=== PATIENT | female | born 1960 | race Caucasian/White ===

== ENCOUNTER 2017-02-22 01:21 | Day surgery (SDC) | payer BC ==
[~2017-02-22] VITALS: Ht 167.6 cm; Wt 95.6 kg
--- NOTE | ~2017-02-22 | HP ---
ADMIT: 02/22/2017 RM/LOC: W.10 [facility] MR#: [id number] [address] [place] [address] History and Physical SEX: F AGE: 56 : 1960 DATE OF SERVICE: HISTORY OF PRESENT ILLNESS: This is a 56-year-old female, who came to the ER last night with complaints of sharp lower abdominal pain. It gradually started at 6 and became more severe through the night. Evaluation in the ER included a CT scan, which demonstrated incarcerated possible strangulated omentum and a lower midline ventral hernia. This was unreducible in the ER. She was otherwise without other complaint today. PAST MEDICAL HISTORY: Hypertension. MEDICATIONS: Current medications are: 1. Metoprolol. 2. Cimzia. 3. Folic acid. 4. Multivitamin. SURGICAL HISTORY: Laparoscopically assisted vaginal hysterectomy. ALLERGIES: NO KNOWN MEDICAL ALLERGIES. FAMILY HISTORY: Noncontributory. SOCIAL HISTORY: She does not smoke, and denies alcohol consumption. REVIEW OF SYSTEMS: Abdominal pain, as reported above. The remainder of the 10-point review of systems is negative for recent change. PHYSICAL EXAMINATION: GENERAL: Will is alert, oriented, and in no acute distress. VITAL SIGNS: Stable at admission. HEENT: Sclerae appear grossly anicteric. Cranial nerves are intact grossly. ADMIT: 02/22/2017 RM/LOC: W.10 [facility] MR#: [id number] [address] [id number] [address] [place] [address] History and Physical SEX: F AGE: 56 : 1960 NECK: Supple. Trachea is midline. LUNGS: Clear bilaterally. HEART: Regular rate and rhythm without murmur. ABDOMEN: Nondistended. There is tender palpable hernia which is incarcerated in the lower midline. EXTREMITIES: Neurovascularly intact x4 with no calf tenderness or swelling. IMPRESSION: Incarcerated ventral hernia. PLAN: I have recommended proceeding with laparoscopic possible open repair possibly with mesh. I discussed the risks of this in detail with Will via an fudge candy maker and she wishes to proceed. Nathan Avendano MD/ tonny JOB #: [id number] CC: Nathan Avendano, Attending Physician Nathan Avendano, Family Physician
--- NOTE | 2017-02-24 04:09 | ER ---
ADMIT: 02/22/2017 RM/LOC: ER [facility] MR#: [id number] [id number] [place], [place] [address] [address] [place] [address] Emergency Room Report SEX: F AGE: 56 : 1960 DATE: 02/22/2017 ADDENDUM: See T-sheet for complete H and P. A 56-year-old female, comes in with about 7-8 hours of lower abdominal pain. The pain has been persistent since onset. It feels like her lower abdomen is in knots. She has not had any nausea or vomiting. Has had normal bowel movements recently, maybe just slight constipation, but nothing that had her concerned. She is not having any urinary symptoms. The patient is otherwise fairly healthy other than a diagnosis of rheumatoid arthritis and hypertension. She states her only previous surgery is a transvaginal hysterectomy. On physical exam, she is moderately obese with tenderness in the area of her suprapubic region, where there is what is roughly a baseball sized firm bulge consistent with what I believe is likely a hernia. The remainder of her abdominal exam is unremarkable. CBC, chemistries, urinalysis were unremarkable. A CT of her abdomen was done, which reveals a large midline ventral hernia with herniated fat with prominent vessels and suggestion of inflammation. The remainder of the bowel is unremarkable other than a moderate size gastric hiatal hernia and slightly complex-appearing cyst in the midpole of the left kidney. HOSPITAL COURSE: The patient did receive IV pain medication in the emergency department and several attempts were made to reduce her hernia and I was unsuccessful in reduction of the hernia. I did contact Dr. Avendano, who is on for Surgery this morning and plan at this time is to have the patient go to short-stay surgery to be evaluated and likely have surgical repair of her ventral hernia. DIAGNOSIS: Ventral midline abdominal hernia. Cristo Perez MD/ tonny JOB #: [id number] CC: Cristo Perez MD, Attending Physician Raymundo Stanton MD, Family Physician
--- NOTE | 2017-03-04 20:44 | OR ---
ADMIT: 02/22/2017 RM/LOC: [facility] MR#: [id number] [address] [address] [address] [place] [address] Operative/Delivery Room Report SEX: F AGE: 56 : 1960 Corrected: 02/26/2017 0638 [facility] SURGERY DATE: 02/22/2017 SURGEON: Nathan Avendano MD PREOPERATIVE DIAGNOSIS: Incarcerated ventral incisional hernia. POSTOPERATIVE DIAGNOSIS: Incarcerated ventral incisional hernia. PROCEDURE: Laparoscopic repair of incarcerated ventral incisional hernia with [address] Mesh. COCOA BEAN CLEANER: Wang Thompson MD whose assistance was necessary for laparoscopic visualization and tissue retraction. ANESTHESIA: General. ESTIMATED BLOOD LOSS: 25 mL. DESCRIPTION OF PROCEDURE: The patient was taken to the operating room and placed supine on the operating room table. General anesthesia was established. The abdomen was prepped and draped in the standard surgical fashion. A 5-mm supraumbilical incision was made in the skin. The fascia was grasped with Dae clamp, and a Veress needle was advanced into the peritoneal cavity. Carbon dioxide was used to insufflate the abdomen to 15 mmHg pressure. The Veress needle was withdrawn, and a 5-mm Optiview trocar was placed. Next, a 5- mm left lateral port, and a 12-mm right lower quadrant port were placed under visualization. The omental content was markedly adherent and adhesed to the extra abdominal space in the hernia. This was quite incarcerated, but was eventually reduced with manipulation and freeing of the adhesions with Harmonic Scalpel and sharp scissor dissection. Once this was reduced, the fascial margins were cleaned of preperitoneal fat for further delineation. The defect measured 3 x 5 cm. The primary repair of the fascial margins was performed with the suture passer and 0 Vicryl ties to allow midline approximation of the defect margins. Three separate passes were made for approximation. Next, this repair was then buttressed with a Ventralight 11.4 cm circular mesh. This was brought through the upper margin of the defect. This defect did extend just to above the pubic symphysis. The mesh was then ADMIT: 02/22/2017 RM/LOC: [facility] MR#: [id number] [address] [address] [address] [place] [address] Operative/Delivery Room Report SEX: F AGE: 56 : 1960 secured circumferentially around the defect with the SecureStrap device. This provided excellent overlap with no tension. The balloon of the Ventralight mesh was removed without complication. The ports were removed under visualization without evidence of bleeding. The fascial margin, the 12 mm port site was approximated with 0 Vicryl suture and the suture passer. The abdomen was allowed to deflate. Skin edges were approximated with 4-0 Monocryl in a subcuticular fashion and Dermabond. Local anesthetic was injected at the incisions. Sponge, needle, and instrument counts were correct at the end of the case. The patient tolerated the procedure well and transferred to the recovery area in stable condition. Nathan Avendano MD/ tonny JOB #: [id number] CC: Nathan Avendano, Attending Physician Nathan Avendano, Family Physician Corrected: 02/26/2017 0638 [email or web address]
== END 2017-02-22 16:27 | disposition home or self-care (01) ==
LOC: ER 01:21 → SSS 05:35 → ER 05:35 → WOR 05:35 → SSS 16:27
PROC: 0WUF4JZ Supplement Abdominal Wall with Synthetic Substitute, Percutaneous Endoscopic Approach (ICD-10-PCS; principal; 2017-02-22)
DX: K43.6 Other and unspecified ventral hernia with obstruction, without gangrene (principal); I10 Essential (primary) hypertension; Z79.899 Other long term (current) drug therapy; Z90.710 Acquired absence of both cervix and uterus; Z79.52 Long term (current) use of systemic steroids

== ENCOUNTER 2017-04-19 13:32 | Emergency (ER) | payer BC ==
--- NOTE | 2017-04-27 18:56 | ER ---
ADMIT: 04/19/2017 RM/LOC: ER [facility] MR#: [id number] [address] [address] [address] [place] [address] Emergency Room Report SEX: F AGE: 56 : 1960 DATE: 04/19/2017 ADDENDUM: This patient comes into the ER because she has been dizzy for the last few days. She has currently been diagnosed with a sinusitis, and she also is having a headache today. On physical exam, she does have pain over her frontal and maxillary sinuses. TMs have fluid bilaterally. Posterior pharynx is benign. Oral mucosa is moist. Neuro, she answers questions and speaks appropriately. She is not orthostatic. It was noted in the ER that her blood pressure was high being 188/122. We did give her some clonidine. She does take blood pressure medicine at home, and we did give her tramadol for her headache. When I went to re-evaluate her, also pain in her head was gone and she felt a lot better. DIAGNOSES: 1. Cephalgia. 2. Sinusitis. We will have her follow up with her primary as needed to monitor her blood pressures. Please see my T-sheet. KAIN Goodman / Jarrod Novak MD / femil JOB #: [id number] CC: Jarrod Novak MD, Attending Physician Raymundo Stanton MD, Family Physician
== END 2017-04-19 18:25 | disposition home or self-care (01) ==
LOC: ER 13:32
DX: J32.9 Chronic sinusitis, unspecified (principal); I10 Essential (primary) hypertension; M19.90 Unspecified osteoarthritis, unspecified site; Z79.899 Other long term (current) drug therapy